=== PATIENT | female | born 1950 | race African-American/Black ===

== ENCOUNTER 2020-08-24 14:32 | Emergency (ER) | payer MEDICARE, MEDICAID, SELFPAY ==
[2020-08-24 14:27] VITALS: BP 80/31; PULSE 52; RESP 41; TEMP 37.2; O2SAT 95
--- NOTE | 2020-08-24 14:32 | ECG_ITS ---
Measurements Intervals [place] Rate: 160 P: ME: 0 QRS: 55 QRSD: 70 T: 70 QT: 253 QTc: 414 Interpretive Statements ATRIAL FLUTTER/TACHYCARDIA WITH RAPID VENTRICULAR RESPONSE LOW QRS VOLTAGE IN LIMB LEADS BASELINE ARTIFACT- I, II, III, AVR, AVL, AVF, V2-V6 ABNORMAL ECG Electronically Signed On 08-24-2020 17:49:13 CDT by Zen Sanchez D.O.
--- NOTE | 2020-08-24 14:35 | ED.GENADULT ---
HPI - General Adult General Chief complaint: Cardiac Arrest/CPR Stated complaint: unresponsive Source: EMS and RN notes reviewed Mode of arrival: EMS History of Present Illness HPI narrative: Patient is 70 years old -[place] female brought to the emergency room from long-term by ambulance with left chest pain, shortness of breath and unresponsiveness. 40 minutes ago patient called the nurse complaining of burning sensation left chest. 1 tablet of nitroglycerin was given, few minutes later patient became unresponsive, with shortness of breath, 911 was called. Patient is DNI History of diabetes on insulin, patient also is on Flagyl and Tylenol. Possible uterine cancer. The above history was provided by the nurse was taking care of the patient at the long-term through a phone call Related Data Home Medications Medication Instructions Recorded Confirmed Thera M 08/24/20 08/24/20 acetaminophen 500 mg PO QID PRN 08/24/20 08/24/20 insulin lispro 08/24/20 metformin 1,000 mg PO BID 08/24/20 Allergies Allergy/AdvReac Type Severity Reaction Status Date / Time amoxicillin Allergy Unknown Verified 08/24/20 14:36 ampicillin Allergy Unknown Verified 08/24/20 14:36 Review of Systems Review of Systems: ROS unobtainable: Yes unobtainable due to medical condition PMFSH Social History Social History Gender identity (if verbalized by the patient): Female Exam Narrative: Exam Narrative: General appearance: Well-developed, well-nourished, tachypneic, tachycardiac, unresponsive Skin: Normal color, pale and cold, pedal edema bilaterally, right lower leg is bigger than the left 1 Head: Normocephalic, nontraumatic Eyes: Clear conjunctiva Neck: Supple, nontender Chest and respiratory: Airway patent, labored breathing, tachypneic, accessory respiratory muscle use Heart: Tachycardia Abdomen: Soft, nontender, no organomegaly, quiet bowel sounds Neurologic: Unresponsive Course Course Emergency Course: Guarded Reevaluation(s) Reevaluation #1: EKG was obtained and showed tachyarrhythmia, high likely atrial flutter with RVR, blood pressure was 110/70, within 2 minutes the monitor showed heart rate of 62 bpm, without pulse or any respiratory effort. CODE BLUE was started, CODE BLUE protocol was applied, patient had asystole alternating with PEA arrest. 10 minutes later the code was called off and patient was pronounced . Date: 08/24/20 Time: 15:42 Reevaluation #2: Patient son came to the emergency room, was notified about the condition, and was taken to the room to be at the bedside. Patient son is telling me that patient had large tumor in the abdomen which high likely uterine cancer and the patient declined to any further evaluation or treatment. Date: 08/24/20 Time: 15:43 Vital Signs Vital signs: Vital Signs Temperature 37.2 C 08/24/20 14:27 Pulse Rate 52 L 08/24/20 14:27 Respiratory Rate 41 H 08/24/20 14:27 Blood Pressure 80/31 L 08/24/20 14:27 Pulse Oximetry 95 08/24/20 14:27 Temperature 37.2 C 08/24/20 14:27 Pulse Rate 144 H 08/24/20 15:01 Respiratory Rate 27 H 08/24/20 15:01 Blood Pressure 113/77 08/24/20 15:01 Pulse Oximetry 78 L 08/24/20 15:01 Medical Decision Making MDM Narrative Medical decision making narrative: Patient presents with chest pain, shortness of breath and unresponsiveness. The Differential diagnosis below, Labs, chest x-ray, UA, ordered. Further plan to follow Unable to get the EKG at this time because of the clinical condition. Differential Diagnosis Differential Diagnosis: COPD, congestive heart failure, acute coronary synd
[2020-08-24] MEDS: SODIUM CHLORIDE 0.9% IV 1,000 ML 999 ML IV CONT (14:42)
[2020-08-24 14:48] VITALS: PULSE 151; RESP 43; O2SAT 97
[2020-08-24 14:49] LABS: Alveolar/Arterial O2 Gradient 461.3 mmHg; Base Excess ABG -12.9 mEq/l (+/-2.0); Device NON-REBREATHER MASK; Fractional Inspired Oxygen 100 %; HCO3 ABG 12.3 mEq/l (22.0-26.0); Oxygen Content ABG 12.8 %vol (16.0-22.0); Oxygen Saturation ABG 99.4 % (95.0-100.0); Oxyhemoglobin 97.5 % THb (90.0-100.0); PO2 ABG 225.7 mmHg (80.0-100.0); PO2 FiO2 Ratio Arterial Blood 2.26 %; Site Drawn RIGHT BRACHIAL; Total Hemoglobin 8.9 g/dL (12.0-18.0); pH ABG 7.293 (7.350-7.450)
[2020-08-24 14:50] VITALS: BP 81/71; PULSE 161; RESP 42; O2SAT 100
[2020-08-24 14:52] VITALS: BP 97/52; PULSE 156; RESP 41; O2SAT 97
[2020-08-24 14:53] VITALS: PULSE 165
[2020-08-24 14:55] LABS: Hematocrit 30.5 % (37.0-47.0); Hemoglobin 8.2 g/dL (12.0-15.0); Mean Corpuscular HGB Conc 26.9 g/dl (32-36); Mean Corpuscular Hemoglobin 20.3 pg (26-34); Mean Corpuscular Volume 75.7 fl (80-100); Mean Platelet Volume 8.9 fl (7.4-10.4); Platelet Count Result 197 k/mm3 (150-375); Red Blood Count 4.03 M/mm3 (4.2-5.4); Red Cell Distribution Width 17.4 % (11.5-14.5); White Blood Count 19.2 K/mm3 (4.5-10.0)
[2020-08-24 15:01] VITALS: BP 113/77; PULSE 144; RESP 27; O2SAT 78
--- NOTE | 2020-08-24 15:03 | PC.NURSE ---
Patient agonal respirations at this time, being bagged at this time with oral airway placed. OR 45 with BP 113/77.
[2020-08-24 15:05] LABS: INR 1.4; Prothrombin Time 18.1 Seconds (11.1-14.7)
[2020-08-24 15:06] LABS: Partial Thromboplastin Time 46.8 SECONDS (22.3-36.8)
--- NOTE | 2020-08-24 15:08 | PC.NURSE ---
Continued bagging and CPR started. Patient is a limited code and code blue called.
[2020-08-24 15:18] LABS: NT Pro B Type Natriuretic Pept 1160 pg/mL (5-100); Troponin I < 0.012 ng/mL (0.000-0.034)
--- NOTE | 2020-08-24 15:32 | ECG_ITS ---
Measurements Intervals [place] Rate: 24 P: 31 [place]: 101 QRS: 0 QRSD: 4 T: 112 QT: 247 QTc: 157 Interpretive Statements IDIOVENTRICULAR RHYTHM OR SLOW JUNCTIONAL RHYTHM INTRAVENTRICULAR CONDUCTION DELAY WITH FEATURES OF BOTH RBBB, LBBB LOW QRS VOLTAGE IN DIFFUSE LEADS BASELINE ARTIFACT- I, II, AVR, AVL, AVF, V1-V5 ABNORMAL ECG Electronically Signed On 08-24-2020 17:55:08 CDT by Zen Sanchez D.O.
[2020-08-24 15:34] LABS: Alanine Aminotransferase 16 U/L (4-35); Albumin Level 2.7 g/dL (3.5-5.1); Alkaline Phosphatase 402 U/L (38-126); Anion Gap 16 mmol/L (8-16); Aspartate Amino Transferase 77 U/L (14-36); Bilirubin,Total 0.2 mg/dL (0.2-1.3); Blood Urea Nitrogen 12 mg/dL (7-17); Calcium 8.9 mg/dL (8.4-10.2); Carbon Dioxide 16 mmol/L (22-30); Chloride 106 mmol/L (98-107); Estimated CRCL calculation 62 ml/min; Estimated Glomerular Filt Rate > 60; Glucose 183 mg/dL (65-105); Potassium 3.7 mmol/L (3.4-5.0); Sodium 138 mmol/L (137-145)
[2020-08-24 15:37] LABS: Band Neutrophils Percent 9 % (0-6); Lymphocytes Absolute Manual 8.44 K/mm3 (1.1-4.5); Lymphocytes Percent Manual 44 % (18-44); Metamyelocytes Percent 2 %; Monocytes Absolute Manual 0.38 K/mm3 (0.1-0.90); Monocytes Percent Manual 2 % (3-9); Neutrophils Absolute Manual 9.98 K/mm3 (1.7-7.2); Neutrophils Percent Manual 43 % (46-73); Nucleated Red Blood Cells 4 %; Total Cells Counted 100
[2020-08-24 15:38] LABS: Hypochromasia 2+ (NORMAL); Ovalocytes 1+ (NORMAL); Platelet Estimate Adequate (Adequate)
[2020-08-24 15:43] LABS: D Dimer > 20.00 ug/mL (<0.48)
--- NOTE | 2020-08-24 15:56 | PC.NURSE ---
Harrison from [facility]ers office and [facility] contacted. pt released from immigration judge and not candidate for donation
--- NOTE | 2020-08-24 17:23 | PC.NURSE ---
[facility] contacted and spoke with son. Will come get pt.
== END 2020-08-24 18:35 | disposition expired ==
PROVIDERS: Emergency Provider Emergency Medicine; PCP Pediatrics Neonatal-Perinatal Medicine
DX: I46.9 Cardiac arrest, cause unspecified (principal); I48.92 Unspecified atrial flutter; E11.9 Type 2 diabetes mellitus without complications; Z79.4 Long term (current) use of insulin
CPT/HCPCS: 36415; 36600; 36680; 80053; 82805; 83735; 83880; 84484; 85025; 85380; 85610; 85730; 87040; 87077; 87186; 92950; 93005; 96360; 99285; J0171; J7030